=== PATIENT | female | born 1995 | race Caucasian/White ===

== ENCOUNTER 2019-01-01 20:12 | Emergency (ER) | payer OTHER ==
[~2019-01-01] VITALS: Ht 160 cm; Wt 65.8 kg
[~2019-01-01 20:12] MED LIST: ACETAMINOPHEN-1 EAC1 PO; NORFLEX100 MG PO
[2019-01-01 20:57] LABS: URINE BILIRUBIN NEGATIVE (Negative); URINE BLOOD NEGATIVE (Negative); URINE CLARITY CLEAR; URINE COLOR YELLOW; URINE GLUCOSE-RANDOM NEGATIVE (Negative); URINE KETONES NEGATIVE (Negative); URINE LEUKOCYTES-REFLEX NEGATIVE (Negative); URINE NITRITE-REFLEX NEGATIVE (Negative); URINE PROTEIN NEGATIVE (Negative); URINE SPECIFIC GRAVITY 1.015 (1.005-1.030); URINE UROBILINOGEN 0.2 E.U./dl (0.2-1.0)
[2019-01-01] MEDS ORDERED: MEDROLDOSEPACK PO (21:18)
[2019-01-01] MEDS ORDERED: IBUPROFEN 600600 M1 PO (21:18)
[2019-01-01 21:27] VITALS: BP 115/70
== END 2019-01-01 21:28 | disposition home or self-care (01) ==
LOC: M.ERS 20:12
PROVIDERS: Nurse Practitioner Family
DX: M54.42 Lumbago with sciatica, left side (principal); Z88.0 Allergy status to penicillin